=== PATIENT | male | born 1965 | race Caucasian/White ===

== ENCOUNTER 2017-07-08 21:40 | Inpatient (IN) | payer SELFPAY ==
[~2017-07-08] VITALS: Ht 175.3 cm; Wt 72.6 kg
[2017-07-09] MEDS ORDERED: IBUPROFEN 400MG TABLET PO ONE (00:15)
[2017-07-09] MEDS ORDERED: IPRATROPIUM/ALBUTEROL 0.5-3(2.5)MG/3ML NEB HHN ONE (01:30)
[2017-07-09 01:47] LABS: BASOPHILS % 0.3 % (0.0-2.0); EOSINOPHILS % 0.5 % (0.0-5.0); HEMATOCRIT. 42.6 % (42.0-52.0); HEMOGLOBIN. 14.8 g/dL (14.0-18.0); LYMPHOCYTES % 7.8 % (20.0-50.0); MEAN CORPUSCULAR HEMOGLOBIN 30.8 pg (28.0-32.0); MEAN PLATELET VOLUME 8.9 fl (7.4-10.4); MONOCYTES % 9.4 % (2.0-8.0); PLATELET 185 x1000/uL (130-400); RED BLOOD CELL COUNT 4.79 mill/uL (4.7-6.1); RED CELL DISTRIBUTION WIDTH 13.7 % (11.6-14.6)
[2017-07-09 01:50] LABS: CHLORIDE 95 mEq/L (98-107)
[2017-07-09 02:44] LABS: CLARITY URINE CLEAR (CLEAR); COLOR URINE YELLOW (YELLOW); KETONES URINE NEGATIVE (NEGATIVE); LEUKOCYTE ESTERASE URINE NEGATIVE (NEGATIVE); NITRITE URINE NEGATIVE (NEGATIVE); OCCULT BLOOD URINE NEGATIVE (NEGATIVE); PROTEIN URINE TRACE (NEGATIVE); UROBILINOGEN URINE 0.2 E.U./dL (0.2-1.0)
[2017-07-09] MEDS ORDERED: GUAIFENESIN 200MG/10ML SUGAR FREE UDC PO PRN (07:45)
[2017-07-09] MEDS ORDERED: DOCUSATE SODIUM 100MG CAPSULE PO PRN (07:45)
[2017-07-09] MEDS ORDERED: ONDANSETRON HCL 4MG/2ML VIAL IV PRN (07:45)
[2017-07-09] MEDS ORDERED: MAGNESIUM/ALUMINUM HYDROXIDE/SIMETHICONE 30ML UDC PO PRN (07:45)
[2017-07-09] MEDS ORDERED: DEXTROSE 50% WATER 50ML SYRINGE IV PRN (07:45)
[2017-07-09] MEDS ORDERED: KETOROLAC 15MG/ML VIAL IV PRN ×2 (07:45→10:00)
[2017-07-09] MEDS ORDERED: IPRATROPIUM/ALBUTEROL 0.5-3(2.5)MG/3ML NEB INH PRN (07:45)
[2017-07-09] MEDS ORDERED: DIPHENHYDRAMINE 50MG/ML VIAL IV PRN (07:45)
[2017-07-09] MEDS ORDERED: NA PHOS,M-B/NA PHOS,DI-BA ENEMA 118ML PR PRN (07:45)
[2017-07-09] MEDS: INSULIN LISPRO 100 UNITS/ML SUBCUT SCH ×4 (08:20→22:13)
[2017-07-09] MEDS: BLOOD SUGAR DIAGNOSTIC STRIP TEST SCH ×4 (09:00→21:14)
[2017-07-09 09:41] LABS: *AMPHETAMINES SCREEN URINE NEGATIVE (NEGATIVE); *BARBITURATES SCREEN URINE NEGATIVE (NEGATIVE); *BENZODIAZEPINES SCREEN URINE NEGATIVE (NEGATIVE); *COCAINE SCREEN URINE PRESUMTIVE POSITIVE (NEGATIVE); CANNABINOID URINE SCREEN NEGATIVE (NEGATIVE); METHADONE URINE SCREEN NEGATIVE (NEGATIVE); OPIATES URINE SCREEN PRESUMTIVE POSITIVE (NEGATIVE); PHENCYCLIDINE URINE SCREEN NEGATIVE (NEGATIVE)
[2017-07-09 10:50] VITALS: BP 123/54
[2017-07-09 12:00] VITALS: BP 123/54
[2017-07-09] MEDS: FAMOTIDINE 20MG/2ML VIAL IV SCH ×2 (12:09→21:12)
[2017-07-09] MEDS: ASPIRIN 325MG EC TABLET PO SCH (12:10)
[2017-07-09] MEDS: ENOXAPARIN 40MG/0.4ML SYR SUBCUT SCH (12:10)
[2017-07-09 16:00] VITALS: BP 158/76
[2017-07-09] MEDS ORDERED: HYDR-4134 PO (16:06)
[2017-07-09] MEDS ORDERED: CLON0.1T PO (16:06)
[2017-07-09] MEDS ORDERED: NIFE30TA94 PO (16:06)
[2017-07-09] MEDS ORDERED: CARV12.545 PO (16:06)
[2017-07-09] MEDS ORDERED: TRAZ-129 PO (16:06)
[2017-07-09 16:14] LABS: CREATINE KINASE 14 IU/L (39-308); CREATINE KINASE MB FRACTION < 0.5 ng/mL (0.5-3.6); TROPONIN I < 0.02 ng/mL (0.00-0.04)
[2017-07-09] MEDS: ACETAMINOPHEN 325MG TABLET PO PRN (17:11)
[2017-07-09] MEDS: KETOROLAC 15MG/ML VIAL IV PRN (17:18)
[2017-07-09 20:00] VITALS: BP 166/81
[2017-07-09] MEDS ORDERED: ZOLPIDEM TARTRATE 5MG TABLET PO PRN (21:00)
[2017-07-09 23:44] LABS: CREATINE KINASE 13 IU/L (39-308); CREATINE KINASE MB FRACTION < 0.5 ng/mL (0.5-3.6); TROPONIN I < 0.02 ng/mL (0.00-0.04)
[2017-07-10 02:00] VITALS: BP 182/82
[2017-07-10] MEDS: CLONIDINE 0.1MG TABLET PO PRN ×2 (02:20→21:10)
[2017-07-10] MEDS: KETOROLAC 15MG/ML VIAL IV PRN ×3 (02:26→16:39)
[2017-07-10 04:00] VITALS: BP 155/92
[2017-07-10] MEDS: BLOOD SUGAR DIAGNOSTIC STRIP TEST SCH ×4 (06:25→21:10)
[2017-07-10 08:00] VITALS: BP 144/74
[2017-07-10] MEDS: ENOXAPARIN 40MG/0.4ML SYR SUBCUT SCH (08:47)
[2017-07-10] MEDS: FAMOTIDINE 20MG/2ML VIAL IV SCH ×2 (08:47→21:10)
[2017-07-10] MEDS: ASPIRIN 325MG EC TABLET PO SCH (08:50)
[2017-07-10] MEDS: INSULIN LISPRO 100 UNITS/ML SUBCUT SCH ×4 (08:51→21:19)
[2017-07-10 12:30] VITALS: BP 144/79
[2017-07-10 16:29] VITALS: BP 170/79
[2017-07-10 20:00] VITALS: BP 170/82
[2017-07-11 04:00] VITALS: BP 162/82
[2017-07-11] MEDS: BLOOD SUGAR DIAGNOSTIC STRIP TEST SCH ×4 (06:25→21:39)
[2017-07-11 08:00] VITALS: BP 161/71
[2017-07-11] MEDS: ASPIRIN 325MG EC TABLET PO SCH (09:12)
[2017-07-11] MEDS: ENOXAPARIN 40MG/0.4ML SYR SUBCUT SCH (09:12)
[2017-07-11] MEDS: FAMOTIDINE 20MG/2ML VIAL IV SCH ×2 (09:12→20:16)
[2017-07-11] MEDS: KETOROLAC 15MG/ML VIAL IV PRN ×2 (09:13→20:23)
[2017-07-11] MEDS: INSULIN LISPRO 100 UNITS/ML SUBCUT SCH ×4 (09:26→21:42)
[2017-07-11 12:00] VITALS: BP 147/82
[2017-07-11 16:00] VITALS: BP 140/80
[2017-07-11 20:00] VITALS: BP 172/86
[2017-07-11] MEDS: CLONIDINE 0.1MG TABLET PO PRN (20:16)
[2017-07-11 23:43] VITALS: BP 137/78
[2017-07-11] MEDS: ACETAMINOPHEN 325MG TABLET PO PRN (23:45)
[2017-07-12] MEDS: ACETAMINOPHEN 325MG TABLET PO PRN ×3 (03:56→21:44)
[2017-07-12 03:57] VITALS: BP 133/70
[2017-07-12] MEDS: BLOOD SUGAR DIAGNOSTIC STRIP TEST SCH ×4 (05:35→21:52)
[2017-07-12 08:00] VITALS: BP 143/89
[2017-07-12] MEDS: FAMOTIDINE 20MG/2ML VIAL IV SCH ×2 (08:31→21:41)
[2017-07-12] MEDS: KETOROLAC 15MG/ML VIAL IV PRN (08:31)
[2017-07-12] MEDS: ENOXAPARIN 40MG/0.4ML SYR SUBCUT SCH (08:31)
[2017-07-12] MEDS: ASPIRIN 325MG EC TABLET PO SCH (08:31)
[2017-07-12] MEDS: INSULIN LISPRO 100 UNITS/ML SUBCUT SCH ×4 (08:32→21:53)
[2017-07-12 12:00] VITALS: BP 148/80
[2017-07-12 16:00] VITALS: BP 139/85
[2017-07-12 20:00] VITALS: BP 162/90
[2017-07-13] VITALS (36 sets, daily range): BP systolic 70–144; BP diastolic 30–87
[2017-07-13] MEDS: INSULIN LISPRO 100 UNITS/ML SUBCUT SCH ×4 (06:59→21:00)
[2017-07-13] MEDS: BLOOD SUGAR DIAGNOSTIC STRIP TEST SCH ×4 (06:59→21:17)
[2017-07-13] MEDS ORDERED: ATROPINE SULFATE 1MG/10ML SYR ONE (09:10)
[2017-07-13] MEDS ORDERED: DEXTROSE 50% WATER 50ML SYRINGE IV ONE (09:10)
[2017-07-13] MEDS ORDERED: CALCIUM CHLORIDE 1GM/10ML SYR IV ONE (09:10)
[2017-07-13] MEDS ORDERED: EPINEPHRINE 0.1MG/ML (1:10,000) 10ML SYR ONE (09:10)
[2017-07-13] MEDS ORDERED: SODIUM BICARBONATE 7.5% 0.9 MEQ/ML 50ML SYR IV ONE (09:10)
[2017-07-13] MEDS ORDERED: AMIODARONE HCL 50MG/ML 3ML VIAL IV ONE (09:10)
[2017-07-13] MEDS ORDERED: ETOMIDATE 2MG/ML 10ML VIAL IV ONE (09:10)
[2017-07-13] MEDS: ASPIRIN 325MG EC TABLET PO SCH (10:04)
[2017-07-13] MEDS: FAMOTIDINE 20MG/2ML VIAL IV SCH (10:04)
[2017-07-13] MEDS: ENOXAPARIN 40MG/0.4ML SYR SUBCUT SCH (10:05)
[2017-07-13] MEDS ORDERED: LIDOCAINE HCL 1% 20ML VIAL (Pyxis) INJ ONE (14:27)
[2017-07-13] MEDS ORDERED: BACITRACIN ZINC 15GM TUBE TOP ONE (14:32)
[2017-07-13] MEDS: ACETAMINOPHEN 325MG TABLET PO PRN (15:50)
[2017-07-13] MEDS ORDERED: NOREPINEPHRINE 4 MG in DEXT 5% WATER 246 ML IV PRN (18:45)
[2017-07-13] MEDS ORDERED: ALBUMIN HUMAN 25GM/100ML (25%) IV SCH (19:00)
[2017-07-13] MEDS ORDERED: PROPOFOL 10MG/ML 100ML 100 ML IV PRN (19:45)
[2017-07-13] MEDS ORDERED: MIDAZOLAM HCL 50 MG in DEXTROSE 5% WATER 40 ML IV PRN (19:45)
[2017-07-13 20:19] LABS: BG BASE EXCESS -11.1 mmol/L (-2.0-2.0); BG CARBOXYHEMOGLOBIN 0.5 % (0.5-1.5); BG DEOXYHEMOGLOBIN 2.2 % (0.0-5.0); BG FRACTION INSPIRED OXYGEN 100; BG HCO3 ACT 17.2 mmol/L (22.0-26.0); BG METHEMOGLOBIN 0.6 % (0.0-1.5); BG OXYGEN SATURATION 97.8 % (92.0-98.5); BG OXYHEMOGLOBIN 96.7 % (94.0-97.0); BG PH 7.181 (7.350-7.450); BG PIP 44 cmH2O; BG PO2 120.2 mmHg (75.0-100.0); BG SAMPLE SITE RIGHT RADIAL; BG TIDAL VOLUME(mL) 500 mL; BG TOTAL HEMOGLOBIN 16.7 g/dL (12.0-18.0); BG VENT MODE VENT - A/C; BG VENT RATE 14 set
[2017-07-13 20:34] LABS: HEMATOCRIT. 49.3 % (42.0-52.0); HEMOGLOBIN. 16.3 g/dL (14.0-18.0); MEAN CORPUSCULAR HEMOGLOBIN 30.2 pg (28.0-32.0); MEAN CORPUSCULAR VOLUME 91.3 fL (80.0-94.0); MEAN PLATELET VOLUME 10.5 fl (7.4-10.4); PLATELET 308 x1000/uL (130-400); RED CELL DISTRIBUTION WIDTH 14.3 % (11.6-14.6)
[2017-07-13 20:37] LABS: CHLORIDE 86 mEq/L (98-107)
[2017-07-13 21:30] LABS: NUCLEATED RED BLOOD CELLS 1 /100 WBC
[2017-07-13 21:31] LABS: PLATELET ESTIMATE NORMAL
[2017-07-13] MEDS ORDERED: LEVOFLOXACIN 500MG PREMIX 100 ML IV NR (22:00)
[2017-07-13] MEDS ORDERED: DEXT 5%/0.9% NACL 1,000 ML IV SCH (22:15)
[2017-07-13] MEDS ORDERED: VANCOMYCIN 1,750 MG in DEXT 5% WATER 250 ML IV NR (23:30)
[2017-07-14] VITALS (18 sets, daily range): BP systolic 35–92; BP diastolic 23–58
[2017-07-14] MEDS ORDERED: NOREPINEPHRINE 8 MG in DEXT 5% WATER 242 ML IV PRN ×2
[2017-07-14] MEDS ORDERED: IPRATROPIUM BROMIDE (0.02%) 0.5MG/2.5ML NEB HHN SCH
[2017-07-14] MEDS ORDERED: IPRATROPIUM/ALBUTEROL 0.5-3(2.5)MG/3ML NEB HHN SCH
[2017-07-14] MEDS ORDERED: SODIUM CHLORIDE 0.9% 1000ML BAG (SEPSIS BOLUS) IV NR (00:57)
[2017-07-14] MEDS ORDERED: VASOPRESSIN 10 UNIT in SODIUM CHLORIDE 0.9% 99.5 ML IV PRN (01:00)
[2017-07-14] MEDS ORDERED: PHENYLEPHRINE 20 MG in DEXT 5% WATER 248 ML IV PRN (01:00)
[2017-07-14] MEDS ORDERED: FAMOTIDINE 20MG/2ML VIAL IV SCH (09:00)
[2017-07-14] MEDS ORDERED: ENOXAPARIN 30MG/0.3ML SYR SUBCUT SCH (09:00)
[2017-07-14] MEDS ORDERED: LEVOFLOXACIN 250MG PREMIX 50 ML IV SCH (20:00)
[2017-07-14] MEDS ORDERED: VANCOMYCIN 1 G PREMIX 200 ML IV SCH (21:00)
== END 2017-07-14 02:55 | disposition expired | DRG 384 ==
LOC: ER 21:50 → ENRESERV 07-09 06:58 → 7WST 07-09 07:40 → EDBEDREQ 07-09 07:59 → MICUNO 07-13 19:12
PROVIDERS: ADMIT Internal Medicine; ATTEND Internal Medicine
PROC: 0HQ0XZZ Repair Scalp Skin, External Approach (ICD-10-PCS; principal; 2017-07-13)
PROC: 5A1935Z Respiratory Ventilation, Less than 24 Consecutive Hours (ICD-10-PCS; 2017-07-13)
PROC: 02HV33Z Insertion of Infusion Device into Superior Vena Cava, Percutaneous Approach (ICD-10-PCS; 2017-07-14)
PROC: B548ZZA Ultrasonography of Superior Vena Cava, Guidance (ICD-10-PCS; 2017-07-14)
PROC: 5A12012 Performance of Cardiac Output, Single, Manual (ICD-10-PCS; 2017-07-14)
PROC: 0BH17EZ Insertion of Endotracheal Airway into Trachea, Via Natural or Artificial Opening (ICD-10-PCS; 2017-07-14)
DX: S01.01XA Laceration without foreign body of scalp, initial encounter (principal); I46.9 Cardiac arrest, cause unspecified; E87.1 Hypo-osmolality and hyponatremia; I10 Essential (primary) hypertension; E11.9 Type 2 diabetes mellitus without complications; F14.90 Cocaine use, unspecified, uncomplicated; F17.210 Nicotine dependence, cigarettes, uncomplicated; W18.39XA Other fall on same level, initial encounter; Z88.0 Allergy status to penicillin; Z79.899 Other long term (current) drug therapy; Y93.89 Activity, other specified; Y92.89 Other specified places as the place of occurrence of the external cause; Y99.8 Other external cause status
CPT/HCPCS: 36415; 36600; 70450; 71045; 80048; 80053; 80061; 80305; 81001; 82375; 82550; 82553; 82805; 82962; 83036; 83880; 84484; 85025; 87040; 87077; 93005; 93970; 94640; 96374; 97162; 99285; J0171; J0282; J0461; J1200; J1650; J1815; J1885; J1956; J2370; J2704; J3370; J3490; J7030; J7040; J7042; J7050; J7060; J7620; P9047; A4315